=== PATIENT | female | born 1990 | race African-American/Black ===

== ENCOUNTER 2016-12-19 07:35 | Emergency (ER) | payer OTHER ==
[~2016-12-19] VITALS: Ht 165.1 cm; Wt 104.5 kg
[~2016-12-19 07:35] MED LIST: HYDR-3533 PO; ZOFR4TAB3 SL
[2016-12-19 07:36] VITALS: BP 180/113; PULSE 76; RESP 16; TEMP 98.1; O2SAT 100
[2016-12-19 08:22] LABS: BACTERIA, URINE FEW /hpf; BLOOD, URINE LARGE (NEG); GLUCOSE,URINE NEG (NEG); KETONE, URINE NEG (NEG); MUCUS URINE FEW /lpf (OCC); NITRITE,URINE NEG (NEG); SQUAMOUS EPITHELIAL CELL URINE 5 /hpf (0-5); TRANSITIONAL EPI CELLS, URINE <1 /hpf; URINE COLOR YELLOW (YELLW/STRAW)
[2016-12-19 08:24] LABS: COMMENT (UR) CULTURE INDICATED; CULTURE IF INDICATED CULTURE INDICATED
[2016-12-19] MEDS ORDERED: PROT40TA PO (09:24)
--- NOTE | 2016-12-19 09:24 | PD ---
HPI Chief Complaint: Abdominal Pain Time Seen by Provider: 09:18 Travel History International Travel<30 days: No Contact w/Intl Traveler<30days: No Traveled to known affect area: No History of Present Illness HPI Healthy 26-year-old female here with complaint of abdominal pain. Patient has had approximately 3+ months of abdominal pain. States pain is present almost within minutes after eating. She describes the pain as burning. Occasionally it is associated with an acidic taste in the posterior pharynx. She has been trying Kaopectate before meals which helps. She was seen here September and had labs, CT abdomen and pelvis that was negative. Discharged home with [place] which she is now no longer taking and she ran out. She states they really did not help much. Patient also had outpatient ultrasound showing no evidence of cholecystitis, cholelithiasis. She presents today because her symptoms are not getting better despite Kaopectate. PFSH Past Medical History Medical History: Denies Significant Hx Diminished Hearing: No Immunizations Current: Yes ?: Not LMP: 12/17/2016 Menopausal: No : 2 Para: 2 Past Surgical History Section: Yes (X2) Gynecologic Surgery: Yes Social History Alcohol Use: No Tobacco Use: No Substance Use: No Allergies-Medications (Allergen,Severity, Reaction): Coded Allergies: No Known Allergies (Verified , 12/19/16) Reported Meds & Prescriptions Reported Meds & Active Scripts Active Protonix (Pantoprazole Sodium) 40 Mg Tab 40 Mg PO DAILY Review of Systems Except as stated in HPI: all other systems reviewed are Neg Physical Exam Narrative GENERAL: Well-appearing female in no acute distress SKIN: Warm and dry. HEAD: Normocephalic. EYES: No scleral icterus. No injection or drainage. ENT: Mucous membranes pink and moist. NECK: Supple CARDIOVASCULAR: Regular rate and rhythm. RESPIRATORY: No accessory muscle use. GASTROINTESTINAL: Abdomen soft, non-tender, nondistended. MUSCULOSKELETAL: Normal gait NEUROLOGICAL: Awake and alert. Normal speech. PSYCHIATRIC: Appropriate mood and affect; insight and judgment normal. Data Data Last Documented VS Vital Signs Date Time Temp Pulse Resp B/P Pulse Ox O2 Delivery O2 Flow Rate FiO2 12/19/16 07:36 98.1 76 16 180/113 100 Room Air Orders Urinalysis - C+S If Indicated (12/19/16 07:40) Ed Urine Pregnancytest Poc (12/19/16 07:40) Urine Culture (12/19/16 07:45) Labs Laboratory Tests Test 12/19/16 07:45 Urine Color YELLOW Urine Turbidity HAZY Urine pH 6.0 Urine Specific [place] 1.032 Urine Protein 30 mg/dL Urine Glucose (UA) NEG mg/dL Urine Ketones NEG mg/dL Urine Occult Blood LARGE Urine Nitrite NEG Urine Bilirubin NEG Urine Urobilinogen LESS THAN 2.0 MG/DL Urine Leukocyte Esterase LARGE Urine RBC 1 /hpf Urine WBC 10 /hpf Urine Squamous Epithelial 5 /hpf Cells Urine Transitional Epithelial <1 /hpf Cells Urine Bacteria FEW /hpf Urine Mucus FEW /lpf Microscopic Urinalysis Comment CULTURE INDICATED MDM Medical Decision Making Medical Screen Exam Complete: Yes Emergency Medical Condition: Yes Medical Record Reviewed: Yes Differential Diagnosis 26-year-old female with 3+ months of epigastric and left upper quadrant abdominal pain, worse after eating most within minutes. Symptoms most consistent with gastritis, GERD. Differential includes peptic ulcer disease, pancreatitis, hepatobiliary pathology. Narrative Course Urinalysis and urine test was performed in triage. Urine test negative. Urinalysis dirty sample, she does not have any symptoms of UTI and we will await culture prior to treating. Symptoms are classic with gastritis, GERD and she will be treated with antacid for home, outpatient PCP follow-up. Diagnosis Primary Impression: Gastritis Qualified Code: K29.50 - Other chronic gastritis without hemorrhage Additional Impression: GERD (gastroesophageal reflux disease) Qualified Code: K21.9 - Gastroesophageal reflux disease without esophagitis Referrals: Primary Care Physician as needed Patient Instructions: Gastritis (ED), General Instructions Additional Instructions: Antacid as prescribed. Tums, Rolaids, [place], Pepto-Bismol, etc. as needed for pain. Follow-up with primary care provider if symptoms persist and return to the ER for the warning signs discussed. Med/Other Pt SpecificInfo: Prescription(s) given Scripts Pantoprazole (Protonix)40 Mg Tab40 Mg PO DAILY #30 TAB Ref 0 Prov:Radha Galloway MD 12/19/16 Disposition: 01 DISCHARGE HOME Condition: Stable Radha Galloway MD Dec 19, 2016 09:24
== END 2016-12-19 09:46 | disposition home or self-care (01) ==
LOC: NEPD 07:35
DX: K29.70 Gastritis, unspecified, without bleeding (principal); K21.9 Gastro-esophageal reflux disease without esophagitis
CPT/HCPCS: 81001; 84703; 87086; 99284